=== PATIENT | male | born 1995 | race African-American/Black ===

== ENCOUNTER 2023-06-04 11:42 | Observation (INO) ==
--- NOTE | 2023-06-01 09:10 | Anesthesiology Consultation ---
Date of Service June 01, 2023 Assessment & Plan (1) Encounter for pre-operative examination: Infectious disease screening: Per assessment on 06/01/23: No known infectious disease contacts or current infectious disease symptoms. Patient at [facility]- unclear when preop Covid testing done. No official report received at this time. Will order Martines to be done DOS (if preop Covid testing not received/reviewed prior). Chart Review Chart Review: Acceptable Risk for Surgery and Patient NOT seen in Pre Admission Testing History Surgery Operation Date: 06/04/23 13:15 Proposed Procedures p Open Reduction of Mandibular Fracture - Raymundo Monroe DMD s Removal of Fracture Teeth Result of a Fall - Raymundo Monroe DMD Height/Weight Height: 6 ft Weight: 88.904 kg Allergies Allergy/AdvReac Type Severity Reaction Status Date / Time No Known Allergies Allergy Verified 06/01/23 15:30 Medications Home Medications Medication Instructions Recorded Confirmed Last Taken acetaminophen 300 mg-codeine 30 mg 2 tab PO TID PRN Pain 06/01/23 06/01/23 Unknown tablet amoxicillin 500 mg capsule 500 mg PO TID 06/01/23 06/01/23 Unknown ibuprofen 600 mg tablet 600 mg PO Q6H PRN Pain 06/01/23 06/01/23 Unknown mirtazapine 15 mg tablet (Remeron) 15 mg PO HS 06/01/23 06/01/23 Unknown prazosin 1 mg capsule (Minipress) 1 mg PO HS 06/01/23 06/01/23 Unknown Past Medical History Medical History Adjustment disorder Anxiety Fracture, jaw with periodontal infection Inmate in correctional facility Past Surgical History Surgical History Surgical history unknown Social History Smoking Status: Former smoker Testing Chest X-Ray Date: 04/13/23 FINDINGS: Cardiomediastinal and hilar silhouettes are within normal limits. No pneumothorax, pleural effusion or airspace consolidation. Bones appear normal. IMPRESSION: No acute process. Other Testing Shoulder x-ray Date: 05/26/23 FINDINGS: There is no evidence of an acute fracture. Joint spaces are well- preserved. The overlying soft tissues are unremarkable. The visualized portions of the lungs are clear. IMPRESSION: No evidence of acute osseous injury. Cervical spine CT Date: 05/26/23 FINDINGS: No acute fractures or subluxations are identified. The vertebral body heights and disk spaces are well maintained. The alignment is normal. Soft tissues are unremarkable. IMPRESSION: No evidence of acute bony injury. Head CT Date: 05/26/23 Findings: The ventricles, basal cisterns, and cerebral sulci are normal. There is no acute intracranial hemorrhage or evidence of acute territorial infarction. Neither mass effect, shift of the midline structures, nor abnormal extra-axial fluid collections are shown. Imaged portions of the paranasal sinuses and mastoid air cells are clear. The orbits appear normal. There are no acute fractures of the calvaria or scalp swelling. Impression: No acute intracranial hemorrhage, skull fractures, or scalp swelling. Face CT Date: 05/26/23 FINDINGS: Nasal bones are normal. There is a fracture of the mandible just to the left of the midline with a separate fracture near the angle of the jaw. There is involvement of the root of the left mandibular canine and third molar. The temporomandibular joints are anatomically aligned. Pterygoid plates are in tact. Zygomatic arches are intact. The globes are normal and symmetric, without proptosis, obvious disruption or lens dislocation. There is no orbital radiopaque foreign body. The orbital jaen are intact. The retrobulbar fat is without evidence of disruption. Extraocular muscles are normal and symmetric. Optic nerve sheath complexes are normal in course and caliber. Mucous retention cysts are seen in the bilateral maxillary sinuses. IMPRESSION: 2 fractures of the left maxilla are seen, nondisplaced, involving the roots of the left mandibular canine and third molar.
[~2023-06-04 11:42] MED LIST: DexMEDEtomidine HCL IV 100 MCG/ML VIAL IV ONE
[2023-06-04] MEDS: LACTATED RINGER'S 1,000 ML IV SCH ×3 (12:10→21:41)
[2023-06-04] MEDS ORDERED: DEXAMETHASONE SOD INJ 4 MG/ML VIAL ONE ×2 (12:18→13:47)
[2023-06-04] MEDS ORDERED: LIDOCAINE 2% 2 ML VIAL/AMP(20MG/ML) INFIL ONE (12:18)
[2023-06-04] MEDS ORDERED: ONDANSETRON INJ 2 MG/ML 2 ML VIAL ONE ×3 (12:18→13:48)
[2023-06-04] MEDS ORDERED: KETOROLAC 30 MG/ML VIAL ONE (12:18)
[2023-06-04] MEDS ORDERED: PROPOFOL IV EMULSION 10 MG/ML 20 ML VIAL IV ONE (12:18)
[2023-06-04] MEDS ORDERED: ROCURONIUM BROMIDE 10 MG/ML 5 ML VIAL IV ONE (12:18)
[2023-06-04] MEDS ORDERED: fentaNYL citrate PF 100 MCG/2 ML VIAL ONE (12:19)
[2023-06-04] MEDS ORDERED: MIDAZOLAM HCL 1 MG/ML 2ML VIAL ONE (12:19)
[2023-06-04] MEDS: ceFAZolin 2,000 MG/15 ML IV PUSH IV ONE (12:23)
--- NOTE | 2023-06-04 12:55 | History & Physical Bridge Note ---
Date of Service June 04, 2023 History & Physical Bridge Note I have examined the patient, reviewed the History & Physical and in the interval since the performance of the History & Physical I have noted the following changes of clinical significance: no changes noted Swelling has subsided and bite more stable Oral Hygiene is not very good I will try to avoid doing an open reduction is possible OK for the procedure
[2023-06-04] MEDS ORDERED: ATROPINE SULFATE 0.1 MG/ML 10ML SYR IV PRN (13:06)
[2023-06-04] MEDS ORDERED: ePHEDrine sulfate 50 MG/ML AMP IV PRN (13:06)
[2023-06-04] MEDS ORDERED: PROMETHAZINE HCL 6.25 MG in SODIUM CHLORIDE 0.9% 50 ML IV PRN (13:06)
[2023-06-04] MEDS: ceFAZolin 2000MG 2,000 MG/15 ML SYR IV SCH ×2 (13:17→21:02)
[2023-06-04] MEDS ORDERED: HYDROmorphone INJ 2 MG/ML SYR/VIAL ONE (13:43)
[2023-06-04] MEDS: CHLORHEXIDINE GLUCONATE 0.12% 480 ML MT ONE (13:49)
[2023-06-04] MEDS ORDERED: SUGAMMADEX SODIUM 200 MG/2 ML VIAL IV ONE (15:35)
[2023-06-04] MEDS: TRIAMCINOLONE ACET 0.1% OINT 15 GM TUBE ONE (16:09)
[2023-06-04] MEDS: BUPIVACAINE/EPINEPHRINE 0.5% 1:200,000 1.8 ML CARP ONE ×2 (16:09→19:42)
[2023-06-04] MEDS ORDERED: OXYMETAZOLINE 0.05% 30 ML BTL PRN (16:23)
[2023-06-04] MEDS ORDERED: ONDANSETRON INJ 2 MG/ML 2 ML VIAL IV PRN (16:23)
--- NOTE | 2023-06-04 16:36 | Post Operative Brief Note ---
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
[2023-06-04] MEDS: ONDANSETRON INJ 2 MG/ML 2 ML VIAL IV PRN (16:44)
[2023-06-04] MEDS: fentaNYL citrate PF 100 MCG/2 ML VIAL IV PRN (16:45)
--- NOTE | 2023-06-04 16:53 | XRay Report ---
XR mandible <4V CLINICAL HISTORY: Status Post-Op Surgery AP Mandibular and Jaw View TECHNIQUE: 2 views of the mandible were obtained. Comparison: Comparison is made to CT facial bones 05/26/2023 FINDINGS: Redemonstration of mandibular fracture with the fracture fragments in anatomic alignment. P ostsurgical changes of plate and screw hardware. IMPRESSION: Expected postoperative appearance of mandibular fracture with anatomic alignment of the fracture frag ments ACT 112: Negative or not required by law. Electronically signed by: Ky Vale M.D. 06/04/2023 4:52 PM
[2023-06-04] MEDS: HYDROmorphone INJ 1 MG/ML SYRINGE IV PRN ×2 (17:08→17:46)
[2023-06-04] MEDS: KETOROLAC 30 MG/ML VIAL IV ONE (17:38)
[2023-06-04] MEDS: MoRPHine SULFATE 2 MG/ML CARP IV STA (17:40)
[2023-06-04] MEDS: KETOROLAC 30 MG/ML VIAL ONE (17:40)
[2023-06-04] MEDS: MoRPHine SULFATE 10 MG/ML CARP/VIAL ONE (17:42)
[2023-06-04] MEDS: ACETAMINOPHEN 1,000 MG/100 ML VIAL IV STA (17:46)
[2023-06-04] MEDS: HYDROmorphone INJ 1 MG/ML SYRINGE ONE (17:47)
[2023-06-04] MEDS: ACETAMINOPHEN 1000 MG/100 ML IV IV ONE (17:47)
--- NOTE | 2023-06-04 18:17 | Anesthesiology Progress Note ---
Date of Service June 04, 2023 Anesthesia Post Procedure Vital Signs Vital Signs: Temp Pulse Pulse Resp BP Pulse Ox O2 Del Method 06/04/23 18:15 37.2 C 102 H 15 138/92 94 Room Air 06/04/23 18:05 108 H 13 165/81 H 95 Room Air 06/04/23 17:55 103 H 16 152/98 H 93 Room Air 06/04/23 17:45 95 H 16 143/103 H 96 Room Air 06/04/23 17:35 101 H 18 151/97 H 97 Room Air 06/04/23 17:25 94 H 12 138/99 93 Room Air 06/04/23 17:15 100 H 12 153/99 H 96 Room Air 06/04/23 17:05 96 H 13 151/100 H 96 Room Air 06/04/23 16:55 102 H 14 146/95 H 95 Room Air 06/04/23 16:45 103 H 12 165/98 H 100 Room Air 06/04/23 16:35 113 H 12 153/92 H 100 Oxymask 06/04/23 16:26 36.7 C 113 H 12 178/82 H 99 Oxymask 06/04/23 12:13 36.9 C 77 18 139/78 96 Room Air O2 Flow Rate 06/04/23 18:15 06/04/23 18:05 06/04/23 17:55 06/04/23 17:45 06/04/23 17:35 06/04/23 17:25 06/04/23 17:15 06/04/23 17:05 06/04/23 16:55 06/04/23 16:45 06/04/23 16:35 7 06/04/23 16:26 7 06/04/23 12:13 Pain Intensity Jaw: Pain Intensity: 3 Mouth: Pain Intensity: 3 Transfer of Care Handoff Completed per policy Notes Mental Status: alert / awake / arousable Patient Amnestic to Procedure: Yes Nausea / Vomiting: adequately controlled Pain: adequately controlled Airway Patency, RR, SpO2: stable & adequate BP & HR: stable & adequate Hydration State: stable & adequate Anesthetic Complications: no major complications apparent and Pt Satisfied with anesthetic care
[2023-06-04] MEDS: HYDROmorphone INJ 0.5 MG/0.5 ML SYR ONE (19:23)
[2023-06-04] MEDS: PHENYLEPHRINE 1% NA SPR 15 ML BTL ONE (19:42)
[2023-06-04] MEDS: MoRPHine SULFATE 2 MG/ML CARP IV PRN (20:42)
[2023-06-04] MEDS: dexAMETHasone 6 MG in SYRINGE 0 ML IV SCH (20:45)
[2023-06-04] MEDS: CHLORHEXIDINE GLUCONATE 0.12% 480 ML MT SCH (20:46)
[2023-06-04] MEDS: TRIAMCINOLONE ACET 0.1% OINT 15 GM TUBE EXT SCH (20:47)
[2023-06-04] MEDS: HYDROcodone/APAP 7.5/325mg/15mL ELIX 15 ML/CUP PO PRN (21:55)
[2023-06-05] MEDS ORDERED: AMOXICILLIN/CLAVULANATE SUSP 400/57 MG 5 ML BTL PO SCH
[2023-06-05] MEDS: KETOROLAC 30 MG/ML VIAL IV SCH (00:15)
[2023-06-05] MEDS ORDERED: LACTATED RINGER'S 1,000 ML IV SCH ×2 (06:00)
[2023-06-05] MEDS ORDERED: ceFAZolin 2000MG 2,000 MG/15 ML SYR IV SCH (06:00)
[2023-06-05] MEDS ORDERED: Nursing to Pharmacy Communication SCH (14:15)
[2023-06-05] MEDS: HYDROcodone/APAP 7.5/325mg/15mL ELIX 15 ML/CUP PO PRN (14:53)
--- NOTE | 2023-06-26 18:49 | Operative Report ---
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 Estimated Blood Loss 10 Findings Consistent with Post-Op Diagnosis Specimens none Drains none Anesthesia Type General Complications none Disposition Accompanied Patient To Recovery: Yes Indications fractured jaw and teeth Description of Procedure ADMITTING DIAGNOSES: Displaced mandibular fracture Fractured teeth 1,8,9,16,17,32 OPERATION: Opened/Closed reduction of bilateral mandibular fractures with placement of hybrid arch bars Extraction of teeth 1,8,9,17 CPT 98628---Tyghnf reduction Mandibular fracture with placement of bone plate left angle fracture removal of wisdom teeth in line of the fracture (# 17) with Hybrid arch bar on upper/lower teeth to achieve stability D7240 for Impacted 17 D7210 for Surgical extraction of # 1,8,9 fractured teeth (traumatic) ICD 10 S02.652B open reduction left kori of the mandible. ICD 10 S05.XXB fractured tooth in line of jaw fracture ICD10 S02.5 Teeth fractured secondary to trauma OPERATION IN DETAIL: After this patient was cleared to undergo general, The patient was placed under general anesthesia via a nasotracheal intubation. After an appropriate time-out was taken to ensure that we had Gilmer Montoya in our operating room with the proper equipment. After everyone agreed, the operation began. The patient was deeply anesthetized and the tubes were secured. The patient was prepped and draped in the usual manner. Given the nature of the fracture, a closed and opened approach will be used. Hybrid Arch bars will be placed on the upper/lower teeth and a bone plate to stabilize the left angle fractured with wire fixation will be placed. Placement of FAVIAN Valenzuela Hybrid Arch Bars Upper/Lower teeth: Local anesthesia in the form of Marcaine with a vasoconstrictor, approximately 4 carpules of the local anesthesia were injected. The fractured was reduced and the occlusion was checked. The arch bars were placed on the lower and upper teeth with the standards hybrid arch bar protocol using 6 and 8 mm KLS Nicolas screws. The roots were avoided. It was noted that there was no movement in the anterior fracture where the symphyseal fracture was noted. Given the minimal displacement of this fracture,I felt it was appropriate that the closed reduction with the arch bar would be enough stability and there was no need for an open reduction in this area Opened reduction approach to the left angle of the mandible. Using a standard sagittal split incision in the left mucobuccal fold the fracture site was encountered. The muscle and periosteum was now incised to reach the bone of the kori of the left side of the mandible. The fragments were displaced and the impacted # 17 was seen still attached to the proximal fragment. There was displacement and comminution of the left angle of the lower jaw. I had excellent exposure of the fracture and # 17 wisdom tooth. The drill with a round bur was used to remove bone.The lingual plate was protected. The tooth was removed with a 301 elevator, the nerve was intact, there was no bleeding. Once this was done I was able to remove any loose fractured bone. The nerve looked to be intact but distorted by the displacement of the fracture segments. The site was curetted and irrigated. I removed the throat packs, irrigated the oral cavity and suctioned it dry and passed an OG tube. The trocar was placed in the left cheek area, this allowed me to place the screws to secure fixation. I was able to line up the main bone fragments at the angle and bend a KLS Nicolas bone plate across the angle fracture above the nerve and place 1 screw on either side of this 4 hole 2 mm plate to temporize the fixation. I now turned my attention to setting the occlusion. I was able to carefully place the mandible into proper inter-dental relationship with the maxilla. I placed the patient into a fixated position with 25 g wire. I was able to obtain an ideal occlusion of the left and right sides of the lower teeth. I now returned to the open reduction site and manipulated the segments to achieve an ideal alignment of the fractured bone and occlusion. I tighten the screws and placed 2 addition monocortical screws The alignment of the teeth and bone was excellent. I released the fixation and found the occlusion was stable. The synthesis fracture was extremely stable once the hybrid arch bar was placed. There was no need for any addition stabilization in this area. I irrigated the open reduction site, the site was stable, no bleeding, well aligned . Closure was was now completed with 4-0 Vicryl suture. The skin was closed with 2 6-0 Nylon sutures. The upper impacted malposed # 1 was now removed An Incision was made over the tuberosity. The full thickness flap was reflected, bone removed with a rongeur, the tooth was visualized, it was close to the sinus and removed with an 81 elevator. Bony margins were trimmed, smoothed and sutured closed with a 2-0 chromic x 2. There was no sinus involvement. The grossly decayed # 8 and 9 were approached with a flap from # 7-10. The drill was used to remove bone. The teeth were now removed with dental forceps. The soft tissue at the apex of 8 and 9 was curetted. The bone was adjusted and closed with 2-0 Chromic sutures. The Hybrid arch bar was stable I now passed another OG tube. The final occlusion was achieved and the 24 g wires was placed to maintain the fixation I placed the patient into a fixated position with 24 g wire. I was able to obtain an ideal occlusion of the left and right sides of the lower teeth. Recovery Phase: At this time the sponge and instruments count was correct. The patient was allowed to recover in the usual manner and then once fully recovered moved to the recovery room, Post op plans: My plan is to keep the patient in a fixated position for 3-4 weeks then transition to a modified exercise program with dental elastics and soft diet for the next 3-4 weeks. We will keep the arch bars in place for a total of 7-8 weeks, then return him to the operating room for removal of the maxillary/mandibular fixation devices. At that time I will also remove the grossly decayed # 16 and 32 teeth to prevent and infections. I will refer the patient to a dentist for evaluation of the teeth that are fractured for repair and replacement. Outcome: Transported in stable condition to post anesthesia recovery area. The patient tolerated the surgical procedure and anesthesia extremely well and I anticipate an uneventful postoperative course. The patient tolerated the surgery very well. I will follow the patient in my office, Rx and instructions will be given upon discharge. CPT 21409---Tgzqhs reduction Mandibular fracture with placement of bone plate left angle fracture removal of wisdom teeth in line of the fracture (# 17) with Hybrid arch bar on upper/lower teeth to achieve stability D7240 for Impacted 17 D7210 for Surgical extraction of # 1,8,9 fractured teeth (traumatic) ICD 10 S02.652B open reduction left kori of the mandible. ICD 10 S05.XXB fractured tooth in line of jaw fracture ICD10 S02.5 I attest to the content of the Intraoperative Record and any orders documented therein. Any exceptions are noted below.
== END 2023-06-05 14:58 ==
LOC: PACUINP 11:42 → ASU 11:42 → 2W 19:38